=== PATIENT | female | born 1980 | race Caucasian/White ===

== ENCOUNTER 2018-08-08 07:38 | Emergency (ER) | payer OTHER, SELFPAY ==
[2018-08-08] MEDS ORDERED: HYDROCODONE/APAP 7.5/325 MG TAB ONE (08:01)
--- NOTE | 2018-08-08 08:28 | RAD REPORT ---
EXAM DESCRIPTION: RAD - Ankle Right 3 View - 08/08/2018 8:10 am CLINICAL HISTORY: fall, pain Trauma, pain COMPARISON: No comparisons FINDINGS: Minimal avulsion fracture is suspected in the region of the medial malleolus. Adjacent mod erate soft tissue swelling is seen with a small ankle joint effusion noted. Small posterior and plant ar calcaneal spurs. No dislocation.
--- NOTE | 2018-08-08 08:43 | ER ---
Nurse's Notes [facility] Name: Danyelle Rodas Age: 37 yrs Sex: Female : 1980 Arrival Date: 08/08/2018 Time: 07:40 Bed 13 Private MD: Chito Bryan E Diagnosis: Right Medial malleolar fx (avulsion) Presentation: 08/08 07:42 Presenting complaint: Patient states: "I slipped and fell last night and rolled my aa5 right foot". Pt c/o right ankle pain. Pt ambulatory with crutches and walking boot. 07:42 Transition of care: patient was not received from another setting of care. Onset of aa5 symptoms was July 2018. Risk Assessment: Do you want to hurt yourself or someone else? Patient reports no desire to harm self or others. Initial Sepsis Screen: Does the patient meet any 2 criteria? No. Patient's initial sepsis screen is negative. Does the patient have a suspected source of infection? No. Patient's initial sepsis screen is negative. Care prior to arrival: None. 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 Screenin:03 Abuse screen: Denies threats or abuse. Nutritional screening: No deficits noted. aa5 Tuberculosis screening: No symptoms or risk factors identified. Fall Risk Ambulatory Aid- Crutches/Cane/Walker (15 pts). Total Guajardo Fall Scale indicates No Risk (0-24 pts). Assessment: 07:45 General: Appears uncomfortable, Behavior is calm, cooperative. Pain: Complains of pain aa5 in right ankle Pain radiates to medial aspect of right calf Pain currently is 9 out of 10 on a pain scale. Quality of pain is described as sharp, throbbing, Pain began 1 day ago. Is continuous, Aggravated by increased activity. Neuro: Level of Consciousness is awake, alert, obeys commands, Oriented to person, place, time, situation. Cardiovascular: Capillary refill < 3 seconds is brisk in bilateral fingers toes Patient's skin is warm and dry. Respiratory: Airway is patent Respiratory effort is even, unlabored, Respiratory pattern is regular, symmetrical. GI: No signs and/or symptoms were reported involving the gastrointestinal system. : No signs and/or symptoms were reported regarding the genitourinary system. EENT: No signs and/or symptoms were reported regarding the EENT system. Derm: Skin is pink, warm \\T\\ dry. Musculoskeletal: Swelling present in right ankle. 08:05 Reassessment: X-ray at bedside . aa5 09:10 Reassessment: Patient is alert, oriented x 3, equal unlabored respirations, skin aa5 warm/dry/pink. Patient states symptoms have not improved. MD was notified. . 09:10 Pain: Pain currently is 9 out of 10 on a pain scale. aa5 09:30 Reassessment: Patient is alert, oriented x 3, equal unlabored respirations, skin aa5 warm/dry/pink. Patient states symptoms have improved. Waiting for pt's mother for ride home. Pain: Pain currently is 6 out of 10 on a pain scale. Vital Signs: 07:45 BP 130 / 102; Pulse 111; Resp 18 S; Temp 98.4(O); Pulse Ox 100% on R/A; Weight 80.74 kg aa5 (R); Height 5 ft. 5 in. (165.10 cm) (R); Pain 9/10; 09:30 BP 136 / 99; Pulse 95; Resp 16 S; Pulse Ox 100% on R/A; aa5 07:45 Body Mass Index 29.62 (80.74 kg, 165.10 cm) aa5 ED Course: 07:40 Patient arrived in ED. mr 07:40 Chito Bryan MD is Private Physician. mr 07:42 Arm band placed on Patient placed in an exam room, on a stretcher. aa5 07:42 Patient has correct armband on for positive identification. Bed in low position. Call aa5 light in reach. Side rails up X 1. 07:43 John Haddad MD is Attending Physician. ps1 07:43 Jesika Alcala, KIMBERLY is Primary Nurse. aa5 07:59 Triage completed. aa5 08:11 Ankle Right 3 View XRAY In Process Unspecified. EDMS 08:41 Ben Dempsey MD is Referral Physician. ps1 09:15 Orthoglass splint: Posterior short lleg splint applied on right leg. mh5 09:40 No provider procedures requiring assistance completed. Patient did not have IV access aa5 during this emergency room visit. Administered Medications: 07:52 Drug: Commodore (7.5 mg-325 mg) 1 tabs Route: PO; aa5 09:10 Follow up: Response: No adverse reaction; Pain is unchanged, physician notified aa5 09:11 Drug: TORadol 30 mg Route: IM; Site: left gluteus; aa5 09:30 Follow up: Response: No adverse reaction; Pain is decreased aa5 Outcome: 08:42 Discharge ordered by MD. ps1 09:40 Discharged to home via wheelchair, with crutches, with family. aa5 09:40 Condition: stable 09:40 Discharge instructions given to patient, Instructed on discharge instructions, follow up and referral plans. medication usage, Demonstrated understanding of instructions, follow-up care, medications, Prescriptions given X 4. 09:45 Patient left the ED. aa5 Signatures: Dispatcher [employer] VELMAMI Carmina FigueredoderJesika rendon, RN RN 5 Marisel Escobar 5 John Haddad MD MD ps1 Corrections: (The following items were deleted from the chart) 10:50 09:56 Patient left the ED. aa5 aa5
--- NOTE | 2018-08-08 08:43 | EDPHYS ---
Physician Documentation [facility] Name: Danyelle Rodas Age: 37 yrs Sex: Female : 1980 Arrival Date: 08/08/2018 Time: 07:40 Bed 13 Private MD: Chito Bryan E ED Physician John Haddad HPI: 08/08 07:47 This 37 yrs old Female presents to ER via Unassigned with complaints of Ankle ps1 Injury. 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 Patient said she heard a pop. Pain localized to lateral and medial malleolus. Pain rated as moderate. Mild amount of superficial swelling. Difficulty to bear weight. Did not hit head, no LOC. Patient presented in a walking boot. . 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 ROS: 07:47 Constitutional: Negative for fever, chills, and weight loss, Eyes: Negative for injury, ps1 pain, redness, and discharge, Cardiovascular: Negative for chest pain, palpitations, and edema, Respiratory: Negative for shortness of breath, cough, wheezing, and pleuritic chest pain, Abdomen/GI: Negative for abdominal pain, nausea, vomiting, diarrhea, and constipation, Back: Negative for injury and pain, Skin: Negative for injury, rash, and discoloration, Neuro: Negative for headache, weakness, numbness, tingling, and seizure. 07:47 MS/extremity: Positive for pain, swelling, tenderness, of the right lateral malleolus and right medial malleolus. Exam: 07:50 Constitutional: This is a well developed, well nourished patient who is awake, alert, ps1 and in no acute distress. Head/Face: Normocephalic, atraumatic. Eyes: Pupils equal round and reactive to light, extra-ocular motions intact. Lids and lashes normal. Conjunctiva and sclera are non-icteric and not injected. Chest/axilla: Normal chest wall appearance and motion. Nontender with no deformity. No lesions are appreciated. Cardiovascular: Regular rate and rhythm. No gallops, murmurs, or rubs. Normal PMI, no JVD. No pulse deficits. Respiratory: Lungs have equal breath sounds bilaterally, clear to auscultation and percussion. No rales, rhonchi or wheezes noted. No increased work of breathing, no retractions or nasal flaring. Abdomen/GI: Soft, non-tender, with normal bowel sounds. No distension or tympany. No guarding or rebound. No evidence of tenderness throughout. Skin: Warm, dry with normal turgor. Normal color with no rashes, no lesions, and no evidence of cellulitis. Neuro: Awake and alert, GCS 15, oriented to person, place, time, and situation. Cranial nerves II-XII grossly intact. Sensory grossly intact. Psych: Awake, alert, with orientation to person, place and time. Behavior, mood, and affect are within normal limits. 07:50 Musculoskeletal/extremity: Extremities: grossly normal except: noted in the right lateral malleolus: swelling, tenderness, There is no evidence of deformity. Vital Signs: 07:45 BP 130 / 102; Pulse 111; Resp 18 S; Temp 98.4(O); Pulse Ox 100% on R/A; Weight 80.74 kg aa5 (R); Height 5 ft. 5 in. (165.10 cm) (R); Pain 9/10; 09:30 BP 136 / 99; Pulse 95; Resp 16 S; Pulse Ox 100% on R/A; aa5 07:45 Body Mass Index 29.62 (80.74 kg, 165.10 cm) aa5 Procedures: 08:48 Splinting: Splint applied to right leg using Orthoglass splint, applied by tech. ps1 Examined by me, post splint application: neurovascular intact, 2+ distal pulses palpable, brisk capillary refill noted, Patient tolerated well. MDM: 07:53 Patient medically screened. ps1 08:48 Data reviewed: vital signs, nurses notes, radiologic studies, and as a result, I will ps1 discharge patient. 08/08 07:51 Order name: Ankle Right 3 View XRAY; Complete Time: 08:39 ps1 08/08 08:52 Order name: Posterior Leg Splint: short leg; Complete Time: 09:10 aa5 Administered Medications: 07:52 Drug: Reading (7.5 mg-325 mg) 1 tabs Route: PO; aa5 09:10 Follow up: Response: No adverse reaction; Pain is unchanged, physician notified aa5 09:11 Drug: TORadol 30 mg Route: IM; Site: left gluteus; aa5 09:30 Follow up: Response: No adverse reaction; Pain is decreased aa5 Disposition: 08/08/18 08:42 Discharged to Home. Impression: Right Medial malleolar fx (avulsion). - Condition is Stable. - Discharge Instructions: Ankle Fracture, [id number]. - Prescriptions for Anaprox DS 550 mg Oral Tablet - take 1 tablet by ORAL route every 12 hours As needed; 20 tablet. Tylenol- Codeine #3 300-30 mg Oral Tablet - take 2 tablet by ORAL route every 6 hours As needed; 30 tablet. Zofran 4 mg Oral Tablet - take 1 tablet by ORAL route every 12 hours As needed; 20 tablet. Medrol (Fredy) 4 mg Oral Tablets, Dose Pack - take 1 tablet by ORAL route as directed - follow package instructions; 1 packet. - Medication Reconciliation Form, Thank You Letter, Antibiotic Education, Prescription Opioid Use form. - Follow up: Ben Dempsey MD; When: 1 week; Reason: Further diagnostic work-up, Recheck today's complaints, Continuance of care. - Problem is new. - Symptoms have improved. Signatures: Dispatcher [employer] EDMS Jesika Alcala RN RN aa5 John Haddad MD MD ps1 Corrections: (The following items were deleted from the chart) 09:56 08:42 08/08/2018 08:42 Discharged to Home. Impression: Right Medial malleolar fx aa5 (avulsion). Condition is Stable. Forms are Medication Reconciliation Form, Thank You Letter, Antibiotic Education, Prescription Opioid Use. Follow up: Ben Dempsey; When: 1 week; Reason: Further diagnostic work-up, Recheck today's complaints, Continuance of care. Problem is new. Symptoms have improved. ps1
[2018-08-08] MEDS ORDERED: KETOROLAC 30 MG/ML INJ ONE (09:20)
== END 2018-08-08 09:56 | disposition home or self-care (01) ==
LOC: ER 07:38
PROC: 2W3QX1Z Immobilization of Right Lower Leg using Splint (ICD-10-PCS; principal; 2018-08-08)
DX: S82.51XA Displaced fracture of medial malleolus of right tibia, initial encounter for closed fracture (principal); X58.XXXA Exposure to other specified factors, initial encounter; Y93.89 Activity, other specified; Y92.89 Other specified places as the place of occurrence of the external cause; Z88.7 Allergy status to serum and vaccine
CPT/HCPCS: 96372; 99284

== ENCOUNTER 2019-08-19 16:05 | Emergency (ER) | payer BC, SELFPAY ==
[2019-08-19 16:47] LABS: Absolute Lymphocytes (CBC) 1.3 K/uL (0.7-4.9); Basophils % 0.6 % (0-1.3); Hematocrit 39.3 % (36.0-45.0); Lymphocytes % 18.6 % (15.3-44.8); MPV 8.5 fL (7.6-11.3); RBC Red Blood Cell Count 4.51 M/uL (3.86-4.86)
[2019-08-19 16:49] LABS: Protime INR 0.91
[2019-08-19 17:10] LABS: ALT/SGPT 19 U/L (12-78); AST/SGOT 10 U/L (15-37); Albumin 3.8 g/dL (3.4-5.0); Alkaline Phosphatase 95 U/L (45-117); BUN Blood Urea Nitrogen 15 mg/dL (7-18); Bicarbonate 25 mmol/L (21-32); Bilirubin Direct < 0.1 mg/dL (0-0.2); Bilirubin Total 0.2 mg/dL (0.2-1.0); Glucose Level 96 mg/dL (74-106); Magnesium 2.2 mg/dL (1.8-2.4); NT PRO-BNP 53 pg/mL (<125); Potassium 3.4 mmol/L (3.5-5.1); Protein, Total 7.8 g/dL (6.4-8.2); Sodium Level 138 mmol/L (136-145); Troponin (Emerg Dept Use Only) < 0.02 ng/mL (0.0-0.045)
[2019-08-19] MEDS ORDERED: LORazepam 2 MG/ML VIAL ONE (17:33)
--- NOTE | 2019-08-19 17:40 | RAD REPORT ---
EXAM DESCRIPTION: Gladys Single View08/19/2019 5:31 pm CLINICAL HISTORY: Chest pain COMPARISON: none FINDINGS: The lungs appear clear of acute infiltrate. The heart is normal size IMPRESSION: No acute abnormalities displayed
--- NOTE | 2019-08-19 18:04 | ER ---
Nurse's Notes [facility] Name: Danyelle Rodas Age: 38 yrs Sex: Female : 1980 Arrival Date: 08/19/2019 Time: 16:09 Bed 5 Private MD: Diagnosis: Chest pain on breathing Presentation: 08/18 16:13 Chief complaint: Patient states: Chest pain started 30-45 minutes ago. Reports headache ca1 and tingly sensation on arms and hands. Coronavirus screen: The patient has NOT traveled to [place] in the past 14 days. The patient has NOT had contact with known and/or suspected case of Coronavirus. Ebola Screen: Patient negative for fever greater than or equal to 101.5 degrees Fahrenheit, and additional compatible Ebola Virus Disease symptoms Patient denies exposure to infectious person. Patient denies travel to an Ebola-affected area in the 21 days before illness onset. No symptoms or risks identified at this time. Initial Sepsis Screen: Does the patient meet any 2 criteria? No. Patient's initial sepsis screen is negative. Does the patient have a suspected source of infection? No. Patient's initial sepsis screen is negative. Risk Assessment: Do you want to hurt yourself or someone else? Patient reports no desire to harm self or others. Onset of symptoms was August 19, 2019. 16:13 Method Of Arrival: Ambulatory ca1 16:13 Acuity: BECKA 3 ca1 Triage Assessment: 16:15 General: Appears in no apparent distress. comfortable, Behavior is cooperative, bp appropriate for age, anxious. Pain: Complains of pain in chest. EENT: No deficits noted. Neuro: No deficits noted. Cardiovascular: No deficits noted. Respiratory: No deficits noted. GI: No signs and/or symptoms were reported involving the gastrointestinal system. : No signs and/or symptoms were reported regarding the genitourinary system. Derm: No deficits noted. Musculoskeletal: No deficits noted. 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 - Social history:: Smoking status: Patient reports the use of cigarette tobacco products, smokes one-half pack cigarettes per day, Patient/guardian denies using alcohol, street drugs, The patient lives with family. - Family history:: not pertinent. Screenin:15 Abuse screen: Denies threats or abuse. Denies injuries from another. Nutritional bp screening: No deficits noted. Tuberculosis screening: No symptoms or risk factors identified. Fall Risk None identified. Assessment: 16:15 General: SEE TRIAGE NOTE. Pain: Complains of pain in chest Pain does not radiate. Pain bp began 1 hour ago. Cardiovascular: Rhythm is sinus tachycardia. 18:29 Reassessment: PT D/C HOME AMBULATORY WITH FAMILY, DX WITH CHEST WALL PAIN AND ANXIETY. bp Vital Signs: 16:13 BP 143 / 88; Pulse 101; Resp 20 S; Temp 97.2(O); Pulse Ox 100% on R/A; Weight 79.83 kg ca1 (R); Height 5 ft. 5 in. (165.10 cm) (R); Pain 6/10; 17:15 BP 120 / 79; Pulse 90; Resp 12; Pulse Ox 100% on R/A; rb1 18:29 BP 123 / 96; Pulse 90; Resp 16; Temp 98; Pulse Ox 100% ; bp 16:13 Body Mass Index 29.29 (79.83 kg, 165.10 cm) ca1 ED Course: 16:09 Patient arrived in ED. mr 16:15 Triage completed. ca1 16:15 Patient has correct armband on for positive identification. Bed in low position. Call bp light in reach. Side rails up X2. Adult w/ patient. quality assurance monitor chassis on. Pulse ox on. NIBP on. 16:17 Arm band placed on right wrist. ca1 16:18 Molina Patricio MD is Attending Physician. ma2 16:24 Kit Cabrales, KIMBERLY is Primary Nurse. bp 16:27 EKG done, by ED staff, reviewed by Molina Patricio MD. em1 16:30 Inserted saline lock: 20 gauge in right antecubital area, using aseptic technique. bp Blood collected. Patient maintains SpO2 saturation greater than 95% on room air. 17:32 XRAY Chest (1 view) In Process Unspecified. EDMS 18:29 No provider procedures requiring assistance completed. IV discontinued, intact, bp bleeding controlled, No redness/swelling at site. Pressure dressing applied. Administered Medications: 17:30 Drug: Ativan 1 mg Route: IVP; Site: right forearm; bp 18:31 Follow up: Response: Anxiety decreased bp Outcome: 18:04 Discharge ordered by . babar 18:29 Discharged to home ambulatory, with family. bp 18:29 Condition: stable 18:29 Discharge instructions given to patient, Instructed on discharge instructions, follow up and referral plans. medication usage, Demonstrated understanding of instructions, follow-up care, medications, Prescriptions given X 1. 18:31 Patient left the ED. bp Signatures: Dispatcher [employer] EDMD Carmina FigueredoMoises em1 Radha Marie, RN RN rb1 Kit Cabrales RN RN bp Molina Patricio MD MD ma2 Acob, Cheryl, RN RN ca1
--- NOTE | 2019-08-19 18:05 | EDPHYS ---
Physician Documentation [facility] Name: Danyelle Rodas Age: 38 yrs Sex: Female : 1980 Arrival Date: 08/19/2019 Time: 16:09 Bed 5 Private MD: ED Physician Molina Patricio HPI: 08/18 18:02 This 38 yrs old Female presents to ER via Ambulatory with complaints of Chest ma2 Pain. 18:02 The patient or guardian reports chest pain that is located primarily in the substernal ma2 area. Onset: gradually, 1 day(s) ago. Associated signs and symptoms: Pertinent negatives: abdominal pain, diaphoresis, headache, lower extremity pain. The chest pain is described as aching. Severity of pain: At its worst the pain was mild in the emergency department the pain is unchanged. The patient has not experienced similar symptoms in the past. 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 - Social history:: Smoking status: Patient reports the use of cigarette tobacco products, smokes one-half pack cigarettes per day, Patient/guardian denies using alcohol, street drugs, The patient lives with family. - Family history:: not pertinent. ROS: 18:02 Constitutional: Negative for fever, chills, and weight loss. ma2 18:02 All other systems are negative. Exam: 18:02 Constitutional: This is a well developed, well nourished patient who is awake, alert, ma2 and in no acute distress. Chest/axilla: Normal chest wall appearance and motion. Nontender with no deformity. No lesions are appreciated. Cardiovascular: Regular rate and rhythm with a normal S1 and S2. No gallops, murmurs, or rubs. Normal PMI, no JVD. No pulse deficits. Respiratory: Lungs have equal breath sounds bilaterally, clear to auscultation and percussion. No rales, rhonchi or wheezes noted. No increased work of breathing, no retractions or nasal flaring. Abdomen/GI: Soft, non-tender, with normal bowel sounds. No distension or tympany. No guarding or rebound. No evidence of tenderness throughout. Skin: Warm, dry with normal turgor. Normal color with no rashes, no lesions, and no evidence of cellulitis. MS/ Extremity: Pulses equal, no cyanosis. Neurovascular intact. Full, normal range of motion. Neuro: Awake and alert, GCS 15, oriented to person, place, time, and situation. Cranial nerves II-XII grossly intact. Motor strength 5/5 in all extremities. Sensory grossly intact. Cerebellar exam normal. Normal gait. Psych: Awake, alert, with orientation to person, place and time. Behavior, mood, and affect are within normal limits. 18:02 Psych: Behavior/mood is anxious. Vital Signs: 16:13 BP 143 / 88; Pulse 101; Resp 20 S; Temp 97.2(O); Pulse Ox 100% on R/A; Weight 79.83 kg ca1 (R); Height 5 ft. 5 in. (165.10 cm) (R); Pain 6/10; 17:15 BP 120 / 79; Pulse 90; Resp 12; Pulse Ox 100% on R/A; rb1 18:29 BP 123 / 96; Pulse 90; Resp 16; Temp 98; Pulse Ox 100% ; bp 16:13 Body Mass Index 29.29 (79.83 kg, 165.10 cm) ca1 MDM: 16:18 Patient medically screened. ma2 18:02 Differential diagnosis: gastritis, pleurisy, anxiety. HEART Score: Total Score = 0. The ma2 patient was not given aspirin in the Emergency Department. DULCE MARIA Risk Score: TOTAL SCORE = 0. Data reviewed: vital signs, nurses notes. Counseling: I had a detailed discussion with the patient and/or guardian regarding: the historical points, exam findings, and any diagnostic results supporting the discharge/admit diagnosis, the presence of at least one elevated blood pressure reading (>120/80) during this emergency department visit, the need for outpatient follow up. Response to treatment: There is no appreciated change of the patient's symptoms at this time, the patient's symptoms have resolved after treatment, the patient's symptoms have worsened after treatment. 08/18 16:18 Order name: Basic Metabolic Panel [facility] 08/18 16:18 Order name: CBC with Diff [facility] 08/18 16:18 Order name: LFT's [facility] 08/18 16:18 Order name: Magnesium [facility] 08/18 16:18 Order name: NT PRO-BNP [facility] 08/18 16:18 Order name: PT-INR [facility] 08/18 16:18 Order name: Troponin (emerg Dept Use Only) [facility] 08/18 16:18 Order name: XRAY Chest (1 view) [facility] 08/18 16:18 Order name: EKG; Complete Time: 16:19 [facility] 08/18 16:18 Order name: Cardiac monitoring; Complete Time: 16:38 [facility] 08/18 16:18 Order name: EKG - Nurse/Tech; Complete Time: 16:27 [facility] 08/18 16:18 Order name: IV Saline Lock; Complete Time: 16:38 [facility] 08/18 16:18 Order name: Labs collected and sent; Complete Time: 16:38 [facility] 08/18 16:18 Order name: O2 Per Protocol; Complete Time: 16:38 [facility] 08/18 16:18 Order name: O2 Sat Monitoring; Complete Time: 16:38 [facility] Administered Medications: 17:30 Drug: Ativan 1 mg Route: IVP; Site: right forearm; bp 18:31 Follow up: Response: Anxiety decreased bp Disposition: 08/19/19 18:04 Discharged to Home. Impression: Chest pain on breathing. - Condition is Stable. - Discharge Instructions: Chest Wall Pain. - Prescriptions for Ativan 0.5 mg Oral Tablet - take 1 tablet by ORAL route every 8 hours As needed; 20 tablet. - Medication Reconciliation Form, Thank You Letter, Antibiotic Education, Prescription Opioid Use form. - Follow up: Private Physician; When: Tomorrow; Reason: Recheck today's complaints, Continuance of care. Signatures: Dispatcher [employer] Kit Chowdary RN RN Molina Solis MD MD ma2 Nita Pandey RN RN ca1 Corrections: (The following items were deleted from the chart) 18:31 18:04 08/19/2019 18:04 Discharged to Home. Impression: Chest pain on breathing. bp Condition is Stable. Prescriptions for Ativan 0.5 mg Oral Tablet - take 1 tablet by ORAL route every 8 hours As needed; 20 tablet. and Forms are Medication Reconciliation Form, Thank You Letter, Antibiotic Education, Prescription Opioid Use. Follow up: Private Physician; When: Tomorrow; Reason: Recheck today's complaints, Continuance of care. ma2
[2019-08-19 19:23] VITALS: O2SAT 100
[2019-08-19 19:25] VITALS: BP 123/96; TEMP 98
--- NOTE | 2019-08-20 08:25 | EKG ---
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
== END 2019-08-19 18:31 | disposition home or self-care (01) ==
LOC: ER 16:05
DX: R07.1 Chest pain on breathing (principal); J45.909 Unspecified asthma, uncomplicated; F17.210 Nicotine dependence, cigarettes, uncomplicated
CPT/HCPCS: 36415; 71045; 80048; 80076; 83735; 83880; 84484; 85025; 85610; 93005; 96374; 99285

== ENCOUNTER 2021-08-29 10:47 | Emergency (ER) | payer BC ==
--- NOTE | 2021-08-29 11:58 | RAD REPORT ---
EXAM DESCRIPTION: CT - CTHCSPWOC - 08/29/2021 11:32 am CLINICAL HISTORY: Trauma, head and neck injury. PAIN COMPARISON: No comparisons TECHNIQUE: Axial 5 mm thick images of the head were obtained. Axial 2 mm thick images of the cervical spine were obtained with sagittal and coronal reconstruction images generated and reviewed. All CT scans are performed using dose optimization technique as appropriate and may include automated exposure control or mA/KV adjustment according to patient size. FINDINGS: CT HEAD WITHOUT CONTRAST: No acute hemorrhage, hydrocephalus or extra-axial collection is identified.No areas of brain edema or midline shift. The paranasal sinuses and mastoids are clear.The calvarium is intact. CT CERVICAL SPINE WITHOUT CONTRAST: No fracture or subluxation.Mild lower cervical degenerative changes.No prevertebral soft tissues swel ling is identified. IMPRESSION: No acute intracranial or cervical spine findings.
--- NOTE | 2021-08-29 12:19 | RAD REPORT ---
EXAM DESCRIPTION: RAD - Knee Left 3 View - 08/29/2021 12:09 pm CLINICAL HISTORY: PAIN COMPARISON: No comparisons FINDINGS: No fracture or dislocation is seen. Trace suprapatellar joint effusion.
--- NOTE | 2021-08-29 12:22 | RAD REPORT ---
EXAM DESCRIPTION: RAD - Ribs Right - 08/29/2021 12:09 pm CLINICAL HISTORY: PAIN COMPARISON: Chest Single View dated 08/19/2019 FINDINGS: No displaced rib fracture is seen. No underlying pneumothorax.
[2021-08-29] MEDS ORDERED: HYDROCODONE/APAP 7.5/325 MG TAB ONE (12:27)
--- NOTE | 2021-08-29 12:44 | ER ---
Nurse's Notes [facility] Name: Danyelle Rodas Age: 40 yrs Sex: Female : 1980 Arrival Date: 08/29/2021 Time: 10:50 Bed 8 Private MD: Diagnosis: Pain in left knee;Chest pain, unspecified-right lower rib pain Presentation: 08/29 11:14 Chief complaint: Patient states: she was attempting to load a 800lb cow into the ap3 trailer this morning, when the cow decided she did not want to be loaded up, and knocked the patient over, and possibly stepped on her. Patient states she fell back and hit her head on the ground. Patient reports head/neck pain, left knee pain, right rib pain and right arm pain at this time. Coronavirus screen: At this time, the client does not indicate any symptoms associated with coronavirus-19. Ebola Screen: No symptoms or risks identified at this time. Initial Sepsis Screen: Does the patient meet any 2 criteria? No. Patient's initial sepsis screen is negative. Does the patient have a suspected source of infection? No. Patient's initial sepsis screen is negative. Risk Assessment: Do you want to hurt yourself or someone else? Patient reports no desire to harm self or others. Onset of symptoms was August 29, 2021. 11:14 Method Of Arrival: Ambulatory ap3 11:14 Acuity: BECKA 3 ap3 Triage Assessment: 11:20 General: Appears uncomfortable, Behavior is calm. Pain: Complains of pain in neck, ap3 head, right rib, right arm, left knee Pain began suddenly. Neuro: Level of Consciousness is awake, alert, obeys commands, Gait is steady, Speech is normal. Respiratory: Airway is patent Respiratory effort is even, unlabored. 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 Last tetanus immunization: up to date Flu vaccine is up to date. - Social history:: Smoking status: Patient reports the use of cigarette tobacco products, denies chronic smoking, but will smoke occasionally. Screenin:20 Abuse screen: Denies threats or abuse. Nutritional screening: No deficits noted. ap3 Tuberculosis screening: No symptoms or risk factors identified. 12:48 Fall Risk None identified. jg9 Assessment: 11:59 Reassessment: No changes from previously documented assessment. jg9 Vital Signs: 11:14 BP 124 / 85; Pulse 84; Resp 17; Temp 98.6; Pulse Ox 100% ; Weight 77.11 kg; Height 5 ap3 ft. 5 in. (165.10 cm); Pain 6/10; 12:19 BP 118 / 87; Pulse 80; Resp 16 S; Pulse Ox 100% on R/A; jg9 11:14 Body Mass Index 28.29 (77.11 kg, 165.10 cm) ap3 ED Course: 10:50 Patient arrived in ED. kz 11:00 Patient has correct armband on for positive identification. Bed in low position. Call jg9 light in reach. 11:16 Triage completed. ap3 11:20 Jesús Kwok PA is PHCP. cp 11:20 Manny Brooks MD is Attending Physician. cp 11:21 Arm band placed on right wrist. C-collar applied. ap3 11:23 Amalia Wild RN is Primary Nurse. jg9 11:32 CT Head C Spine In Process Unspecified. EDMS 12:09 XRAY Knee LEFT 3 view In Process Unspecified. EDMS 12:09 XRAY Ribs RIGHT In Process Unspecified. EDMS 12:47 No provider procedures requiring assistance completed. jg9 12:47 Patient did not have IV access during this emergency room visit. jg9 Administered Medications: 12:26 Drug: Hydrocodone-Acetaminophen (7.5 mg-325 mg) 1 tabs Route: PO; jg9 12:48 Follow up: Response: No adverse reaction; Pain is decreased jg9 Outcome: 12:43 Discharge ordered by . cp 12:47 Discharged to home ambulatory. jg9 12:47 Condition: improved 12:47 Discharge instructions given to patient, Instructed on discharge instructions, follow up and referral plans. Demonstrated understanding of instructions, follow-up care. 12:49 Prescriptions given X 3. jg9 12:50 Patient left the ED. jg9 Signatures: Dispatcher [employer] EDOH Jesús Kwok PA PA cp Prokisch, Amanda RN RN ap3 Amalia Wild RN RN jg9 Edith Vasquezz Corrections: (The following items were deleted from the chart) 11:17 11:14 Chief complaint: Patient states: she was attempting to load a 800lb cow into the ap3 trailer this morning, when the cow decided she did not want to be loaded up, and knocked the patient over, and possibly stepped on her. Patient states she fell back and hit her head on the ground. Patient reports head/neck pain, left knee pain, and right arm pain at this time. ap3 11:21 11:20 General: Appears ap ap3
--- NOTE | 2021-08-29 12:44 | EDPHYS ---
Physician Documentation [facility] Name: Danyelle Rodas Age: 40 yrs Sex: Female : 1980 Arrival Date: 08/29/2021 Time: 10:50 Bed 8 Private MD: ED Physician Manny Brooks HPI: 08/29 11:25 This 40 yrs old Female presents to ER via Ambulatory with complaints of Trampled by cow.cp 11:25 Trauma demographics: County: The injury occurred in [place] Location of Injury: The cp injury occurred outdoors, Date: August 29, 2021. 11:25 Mechanism of injury: struck by cow. Associated injuries: The patient sustained injury cp to the head, injury to the chest, specifically the right lower lateral rib area, left knee. Onset: The symptoms/episode began/occurred this morning. Patient reports she was assisting in loading cow onto trailer when she was knocked to ground. Patient reports striking back of head against ground. Unsure of LOC. Patient c/o right side rib pain, left knee pain. 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 Last tetanus immunization: up to date Flu vaccine is up to date. - Social history:: Smoking status: Patient reports the use of cigarette tobacco products, denies chronic smoking, but will smoke occasionally. Exam: 11:33 Constitutional: The patient appears in no acute distress, alert, awake, non-toxic, well cp developed, well nourished. 11:33 Head/Face: Normocephalic, atraumatic. cp 11:33 Eyes: Periorbital structures: appear normal, Pupils: equal, round, and reactive to light and accomodation, Extraocular movements: intact throughout, Conjunctiva: normal, no exudate, no injection, Sclera: no appreciated abnormality, Lids and lashes: appear normal, bilaterally. 11:33 ENT: External ear(s): are unremarkable, Nose: is normal, Mouth: Lips: moist, Oral mucosa: moist, Posterior pharynx: Airway: no evidence of obstruction, patent. 11:33 Neck: C-spine: vertebral tenderness, that is mild, appreciated at C2 and C3, crepitus, is not appreciated, ROM/movement: is normal, is supple, without pain, no range of motions limitations, no nuchal rigidity. 11:33 Chest/axilla: Inspection: normal, Palpation: crepitus, is not appreciated, tenderness, that is mild, of the right lower lateral rib area. 11:33 Cardiovascular: Rate: normal, Rhythm: regular, Edema: is not appreciated, JVD: is not appreciated. 11:33 Respiratory: the patient does not display signs of respiratory distress, Respirations: normal, no use of accessory muscles, no retractions, labored breathing, is not present, Breath sounds: are clear throughout, no decreased breath sounds, no stridor, no wheezing. 11:33 Abdomen/GI: Inspection: abdomen appears normal, Palpation: abdomen is soft and non-tender, in all quadrants. 11:33 Back: vertebral tenderness, is not appreciated. 11:33 Musculoskeletal/extremity: Extremities: noted in the anterior left knee: ecchymosis, pain, There is no evidence of decreased ROM, deformity, swelling, ROM: full passive range of motion, in the left knee. 11:33 Neuro: Orientation: to person, place \T\ time. Mentation: is normal, Motor: moves all fours, strength is normal, Sensation: is normal. Vital Signs: 11:14 BP 124 / 85; Pulse 84; Resp 17; Temp 98.6; Pulse Ox 100% ; Weight 77.11 kg; Height 5 ap3 ft. 5 in. (165.10 cm); Pain 6/10; 12:19 BP 118 / 87; Pulse 80; Resp 16 S; Pulse Ox 100% on R/A; jg9 11:14 Body Mass Index 28.29 (77.11 kg, 165.10 cm) ap3 MDM: 11:23 Patient medically screened. 12:37 Data reviewed: vital signs, nurses notes, radiologic studies, CT scan, plain films. 08/29 11:21 Order name: CT Head C Spine; Complete Time: 12:00 08/29 12:00 Interpretation: Reviewed report. 08/29 11:21 Order name: XRAY Knee LEFT 3 view 08/29 11:21 Order name: XRAY Ribs RIGHT 08/29 12:29 Order name: Dejon wrap-joint: left knee; Complete Time: 12:48 cp Administered Medications: 12:26 Drug: Hydrocodone-Acetaminophen (7.5 mg-325 mg) 1 tabs Route: PO; jg9 12:48 Follow up: Response: No adverse reaction; Pain is decreased jg9 Disposition: 13:28 Co-signature as Attending Physician, Manny Brooks MD I agree with the assessment and kdr plan of care. Disposition Summary: 08/29/21 12:43 Discharge Ordered Location: Home cp Problem: new cp Symptoms: have improved cp Condition: Stable cp Diagnosis - Pain in left knee cp - Chest pain, unspecified - right lower rib pain cp Followup: cp - With: Private Physician - When: 2 - 3 days - Reason: Recheck today's complaints Discharge Instructions: - Discharge Summary Sheet cp - Elastic Bandage and RICE Therapy cp - Rib Contusion cp - Acute Knee Pain, Adult cp Forms: - Medication Reconciliation Form cp - Thank You Letter cp - Antibiotic Education cp - Prescription Opioid Use cp Prescriptions: - Ibuprofen 800 mg Oral Tablet - take 1 tablet by ORAL route every 8 hours As needed take with food; 30 tablet; cp Refills: 0, Product Selection Permitted - Cyclobenzaprine 10 mg Oral Tablet - take 1 tablet by ORAL route every 8 hours As needed; 20 tablet; Refills: 0, cp Product Selection Permitted - Tramadol 50 mg Oral Tablet - take 1 tablet by ORAL route every 8 hours as needed; 12 tablet; Refills: 0, cp Product Selection Permitted Signatures: Dispatcher [employer] EDCT Manny Brooks MD MD kdr Page, Corey, PA PA cp Bernadette Brown RN RN ap3 Amalia Wild RN RN jg9 Corrections: (The following items were deleted from the chart) 11:26 11:21 Urine Test ordered. cp ab2 12:48 11:21 Urine Dipstick-Ancillary ordered. cp jg9
[2021-08-29 12:56] VITALS: TEMP 98.6; O2SAT 100
[2021-08-29 12:58] VITALS: BP 118/87
== END 2021-08-29 12:50 | disposition home or self-care (01) ==
LOC: ER 10:47
DX: R07.9 Chest pain, unspecified (principal); M25.562 Pain in left knee; W55.22XA Struck by cow, initial encounter; F17.210 Nicotine dependence, cigarettes, uncomplicated; Z88.7 Allergy status to serum and vaccine
CPT/HCPCS: 70450; 72125; 99284